=== PATIENT | male | born 1995 | race Caucasian/White ===

== ENCOUNTER 2018-04-07 12:45 | Inpatient (IN) | payer OTHER ==
[~2018-04-07] VITALS: Ht 193 cm; Wt 92.7 kg
[~2018-04-07 12:45] MED LIST: DOCU100C33 PO; HYDR-3237 PO; ONDA4TAB13 SL
[2018-04-07 14:00] LABS: BASOPHILS # (AUTO) 0.06 x10^3/uL (0-0.1); BASOPHILS % (AUTO) 1 % (0-1); EOSINOPHILS # (AUTO) 0.09 x10^3/uL (0-0.4); EOSINOPHILS % (AUTO) 1 % (1-7); LYMPHOCYTES % (AUTO) 12 % (22-44); MD NO; MEAN CORPUSCULAR HEMOGLOBIN 30.4 pg (27.5-34.5); MEAN CORPUSCULAR HGB CONC 33.6 g/dL (33.2-36.2); MEAN CORPUSCULAR VOLUME 90.7 fL (81-97); MONOCYTES # (AUTO) 1.07 x10^3/uL (0.2-0.8); MONOCYTES % (AUTO) 9 % (2-9); NEUTROPHILS # (AUTO) 8.83 x10^3/uL (1.8-6.8); NEUTROPHILS % (AUTO) 77 % (42-75); PLATELET COUNT 242 x10^3/uL (130-400); RED BLOOD COUNT 4.75 x10^6/uL (4.38-5.82); RED CELL DISTRIBUTION WIDTH 13.1 % (9.4-14.8)
[2018-04-07] MEDS ORDERED: SODIUM CHLORIDE 0.9% 1,000ML IVBOLUS ONE (14:00)
[2018-04-07] MEDS ORDERED: SODIUM CHLORIDE FLUSH 10ML SYR IVF ONE (14:00)
[2018-04-07 14:11] LABS: ALANINE AMINOTRANSFERASE 16 U/L (12-78); ALBUMIN 3.5 g/dL (3.4-5.0); ANION GAP 7 mmol/L (5-15); CALCIUM 8.5 mg/dL (8.5-10.1); CHLORIDE 106 mmol/L (98-107); CREATININE 1.08 mg/dL (0.7-1.3)
[2018-04-07 14:13] LABS: ALKALINE PHOSPHATASE 62 U/L (45-117); BILIRUBIN,TOTAL 0.4 mg/dL (0.2-1.0); TOTAL PROTEIN 6.9 g/dL (6.4-8.2)
[2018-04-07] MEDS ORDERED: VANCOMYCIN 2,000 MG in SODIUM CHLORIDE 0.9% 500 ML IV ONE (15:30)
[2018-04-07] MEDS ORDERED: VANCOMYCIN PER PHARMACY MC PRN ×2 (15:30→16:00)
[2018-04-07] MEDS ORDERED: ONDANSETRON ODT 4 MG PO PRN (16:00)
[2018-04-07] MEDS: PIPERACILLIN/TAZO/PMX 3.375GM 50 ML IV SCH ×2 (16:00→23:24)
[2018-04-07] MEDS ORDERED: ONDANSETRON 2MG/ML, 2ML IVPush PRN (16:00)
[2018-04-07] MEDS ORDERED: morphine SULFATE 10 MG/ML, 1ML IVPush PRN (16:00)
[2018-04-07] MEDS ORDERED: ENALAPRILAT 1.25 MG/ML, 2ML IVPush PRN (16:00)
[2018-04-07] MEDS ORDERED: HYDROcodone/APAP 5/325 TABLET PO PRN (16:00)
[2018-04-07 16:02] LABS: MICROSCOPIC NOT IND
[2018-04-07 16:06] LABS: CULTURE INDICATED? NO
[2018-04-07 16:43] LABS: INTERNATIONAL NORMALIZED RATIO 1.11 (0.93-1.1); PROTHROMBIN TIME 11.4 Seconds (9.6-11.5)
[2018-04-07] MEDS ORDERED: BUPIVACAINE/PF-EPI 0.5% 1:200K ONE (17:04)
[2018-04-07] MEDS ORDERED: FENTANYL PF 250 MCG/5ML ONE (17:15)
[2018-04-07] MEDS ORDERED: MIDAZOLAM 1 MG/ML, 2ML ONE (17:15)
[2018-04-07] MEDS ORDERED: BALANCED SALT OPHTH IRRIG SOLN 18ML ONE (17:22)
[2018-04-07] MEDS ORDERED: PROPOFOL 10 MG/ML, 20ML ONE (17:46)
[2018-04-07] MEDS ORDERED: ROCURONIUM 10MG/ML,5ML ONE ×2 (17:46→18:10)
[2018-04-07] MEDS ORDERED: FENTANYL PF 100 MCG/2ML IV PRN (18:00)
[2018-04-07] MEDS ORDERED: LABETALOL 5MG/ML, 20ML IV PRN (18:00)
[2018-04-07] MEDS ORDERED: ONDANSETRON 2MG/ML, 2ML IV PRN (18:00)
[2018-04-07] MEDS ORDERED: HYDROmorphone 1 MG/ML, 1ML IV PRN (18:00)
[2018-04-07] MEDS ORDERED: hydrALAzine 20 MG/ML, 1ML IV PRN (18:00)
[2018-04-07] MEDS ORDERED: MEPERIDINE/PF 25MG/0.5ML IVPush PRN (18:00)
[2018-04-07] MEDS ORDERED: ACETAMINOPHEN 325 MG TABLET PO PRN (18:00)
[2018-04-07] MEDS ORDERED: PROMETHAZINE 25 MG/ML, 1ML IV PRN (18:00)
[2018-04-07] MEDS ORDERED: OXYcodone 5 MG/5 ML ORAL.SOL UDC PO PRN (18:00)
[2018-04-07] MEDS ORDERED: ONDANSETRON 2MG/ML, 2ML ONE (18:10)
[2018-04-07] MEDS ORDERED: BUPIVACAINE/PF-EPI 0.5% 1:200K INFIL ONE (18:11)
[2018-04-07] MEDS ORDERED: METOCLOPRAMIDE 5 MG/ML, 2ML ONE (18:11)
[2018-04-07] MEDS ORDERED: KETOROLAC 30 MG/1 ML ONE (18:13)
[2018-04-07] MEDS ORDERED: OXYcodone 5 MG/5 ML ORAL.SOL UDC ONE (18:53)
[2018-04-07] MEDS ORDERED: PHARMACOKINETIC MONITORING MC PRN (20:00)
[2018-04-07] MEDS ORDERED: PHARMACOKINETIC CONSULTATION MC ONE (20:00)
[2018-04-07] MEDS: SODIUM CHLORIDE 0.9% 1,000 ML IV SCH (23:24)
[2018-04-08] VITALS: BP 109/49
[2018-04-08] MEDS: VANCOMYCIN 1,800 MG in SODIUM CHLORIDE 0.9% 250 ML IV SCH ×2 (05:04→18:00)
[2018-04-08 05:21] LABS: ALANINE AMINOTRANSFERASE 16 U/L (12-78); ANION GAP 4 mmol/L (5-15); CALCIUM 8.5 mg/dL (8.5-10.1); CHLORIDE 105 mmol/L (98-107); CREATININE 1.23 mg/dL (0.7-1.3)
[2018-04-08 05:22] LABS: MEAN CORPUSCULAR HEMOGLOBIN 30.5 pg (27.5-34.5); MEAN CORPUSCULAR HGB CONC 33.9 g/dL (33.2-36.2); MEAN CORPUSCULAR VOLUME 90.1 fL (81-97); NEUTROPHILS % (AUTO) 71 % (42-75); PLATELET COUNT 230 x10^3/uL (130-400); RED BLOOD COUNT 4.36 x10^6/uL (4.38-5.82); RED CELL DISTRIBUTION WIDTH 13.5 % (9.4-14.8)
[2018-04-08 05:23] LABS: ALKALINE PHOSPHATASE 61 U/L (45-117); BASOPHILS # (AUTO) 0.02 x10^3/uL (0-0.1); BASOPHILS % (AUTO) 0 % (0-1); BILIRUBIN,TOTAL 0.5 mg/dL (0.2-1.0); EOSINOPHILS # (AUTO) 0.18 x10^3/uL (0-0.4); EOSINOPHILS % (AUTO) 2 % (1-7); LYMPHOCYTES # (AUTO) 1.61 x10^3/uL (1-3.4); LYMPHOCYTES % (AUTO) 18 % (22-44); MD NO; MONOCYTES # (AUTO) 0.84 x10^3/uL (0.2-0.8); MONOCYTES % (AUTO) 9 % (2-9); NEUTROPHILS # (AUTO) 6.38 x10^3/uL (1.8-6.8); TOTAL PROTEIN 6.2 g/dL (6.4-8.2)
[2018-04-08 07:03] VITALS: BP 130/73
[2018-04-08] MEDS: PIPERACILLIN/TAZO/PMX 3.375GM 50 ML IV SCH ×4 (07:03→23:13)
[2018-04-08] MEDS: DOXYCYCLINE 100 MG in DEXTROSE 5% 250 ML IV SCH ×2 (09:42→21:29)
[2018-04-08] MEDS: SODIUM CHLORIDE 0.9% 1,000 ML IV SCH ×2 (09:43→19:13)
[2018-04-08] MEDS: ACETAMINOPHEN 325 MG TABLET PO PRN ×2 (11:38→21:35)
[2018-04-08 12:29] VITALS: BP 133/64
[2018-04-08 19:46] VITALS: BP 115/47
[2018-04-09 02:31] VITALS: BP 118/67
[2018-04-09] MEDS: PIPERACILLIN/TAZO/PMX 3.375GM 50 ML IV SCH ×2 (05:05→11:57)
[2018-04-09] MEDS: VANCOMYCIN 1,800 MG in SODIUM CHLORIDE 0.9% 250 ML IV SCH (06:01)
[2018-04-09 06:53] VITALS: BP 121/71
[2018-04-09] MEDS: DOXYCYCLINE 100 MG in DEXTROSE 5% 250 ML IV SCH (08:15)
[2018-04-09] MEDS: SODIUM CHLORIDE 0.9% 1,000 ML IV SCH ×2 (10:15→22:57)
[2018-04-09 13:02] VITALS: BP 119/60
[2018-04-09 17:55] LABS: CLOSTRIDIUM DIFFICILE ANTIGEN NEGATIVE; CLOSTRIDIUM DIFFICILE TOXIN NEGATIVE (Negative)
[2018-04-09 20:54] VITALS: BP 107/49
[2018-04-09] MEDS: SULFAMETH./TRIMETHOPRIM DS 800MG/160MG TABLET PO SCH (21:31)
[2018-04-10 03:28] VITALS: BP 107/57
[2018-04-10 06:57] VITALS: BP 121/57
[2018-04-10] MEDS: SULFAMETH./TRIMETHOPRIM DS 800MG/160MG TABLET PO SCH (09:32)
[2018-04-10] MEDS ORDERED: ACET325T14 PO (09:35)
[2018-04-10] MEDS ORDERED: SULF-169 PO (09:35)
[2018-04-10 10:25] VITALS: BP 118/67
== END 2018-04-10 11:27 | disposition home or self-care (01) | DRG 581 ==
LOC: ED 14:47 → EDIP 15:55 → 4NOR 19:25
PROVIDERS: ADMIT Colon & Rectal Surgery; ATTEND Colon & Rectal Surgery
PROC: 0W9F0ZZ Drainage of Abdominal Wall, Open Approach (ICD-10-PCS; principal; 2018-04-07 17:30)
DX: L03.311 Cellulitis of abdominal wall (principal); K11.20 Sialoadenitis, unspecified; B95.62 Methicillin resistant Staphylococcus aureus infection as the cause of diseases classified elsewhere; L02.211 Cutaneous abscess of abdominal wall; Z80.8 Family history of malignant neoplasm of other organs or systems
CPT/HCPCS: 36415; 74176; 80053; 81003; 85025; 85610; 85730; 87040; 87070; 87075; 87077; 87186; 87205; 87324; 99285; C1729; G0378; J1885; J2250; J2405; J2543; J2704; J3010; J3370; J7060; J2765; J7030; J7040; J7050